=== PATIENT | female | born 1990 | race African-American/Black ===

== ENCOUNTER 2018-06-03 09:51 | Emergency (ER) | payer OTHER ==
[2018-06-03] MEDS: ACETAMINOPHEN 325 MG TAB PO (11:53)
[2018-06-03 11:57] LABS: URINE BLOOD (Dip) POC Trace-intact (NEGATIVE); URINE GLUCOSE (Dip) POC Negative (NEGATIVE); URINE KETONES (Dip) POC Negative (NEGATIVE); URINE LEUKOCYTE EST (Dip) POC Negative (NEGATIVE); URINE NITRITE (Dip) POC Negative (NEGATIVE); URINE TOTAL PROTEIN POC Negative (NEGATIVE)
== END 2018-06-03 12:52 | disposition home or self-care (01) ==
LOC: FTE 09:51
DX: O98.511 Other viral diseases complicating pregnancy, first trimester (principal); B34.9 Viral infection, unspecified; Z3A.12 12 weeks gestation of pregnancy
CPT/HCPCS: 81003; 87400; 99283